=== PATIENT | female | born 1950 | race Caucasian/White ===

== ENCOUNTER 2016-08-07 09:21 | Inpatient (IN) | payer OTHER ==
[2016-08-07] MEDS ORDERED: NARCAN IV ONE (10:06)
[2016-08-07] MEDS ORDERED: NS 1,000 ML IV ONE (10:06)
--- NOTE | 2016-08-07 10:14 | PROVIDER DOCUMENTATION ---
[id number] Abuse/Overdose - General Chief Complaint: Overdose Stated Complaint: brain attack Time Seen by Provider: 08/07/16 09:26 Source: patient, family (pt ), EMS Allergies/Adverse Reactions: Allergies Allergy/AdvReac Type Severity Reaction Status Date / Time No Known Allergies Allergy Verified 08/07/16 10:14 Home Medications: Home Medication List Medication Instructions Recorded Confirmed Last Taken Type Amlodipine Besylate 10 mg PO HS 06/24/16 08/07/16 Unknown History Clonazepam 1 mg PO BID PRN 06/24/16 08/07/16 Unknown History Clonidine [Catapres] 0.1 mg PO BID 06/24/16 08/07/16 Unknown History Folic Acid 400 mg PO DAILY 06/24/16 08/07/16 Unknown History Melatonin 10 mg PO ORDERED 06/24/16 08/07/16 Unknown History Metoprolol Succinate E.r. [Toprol 50 mg PO DAILY 06/24/16 08/07/16 Unknown History Xl] Mirtazapine 30 mg PO HS 06/24/16 08/07/16 Unknown History Primidone 150 mg PO HS 06/24/16 08/07/16 Unknown History Primidone 150 mg PO QAM 06/24/16 08/07/16 Unknown History Quetiapine Fumarate 150 mg PO HS 06/24/16 08/07/16 Unknown History Zinc Gluconate [Zinc] 50 mg PO DIRECTED 06/24/16 08/07/16 Unknown History Levofloxacin [Levaquin] 750 mg PO DAILY #7 tablet 07/03/16 08/07/16 Unknown Rx Levothyroxine [Synthroid] 62.5 microgm IV DAILY@0700 #30 vial 07/03/16 08/07/16 Unknown Rx - History of Present Illness-Drug/Alcohol Nature of Presenting Problem: Pt is brought is by EMS with with cc of overdose. at bedside reports he thought pt was just sleeping last night and noticed this morning that she was lethargic and partially unresponsive. Pt reports that pt had 90 (.5mg) Kolonopine filled on the reports suppose to take 2 tablets a day and 65 pills are missing if she took them as she suppose to have been. Upon arrival pt is responsive to verbal and painful stimuli. Pt isn't oriented and answering questions. This episode of drinking or use began:: last night Severity: reports: moderate Any injuries associated with this episode of intoxication?: No Similar Symptoms Previously?: Yes Recently seen or treated by another doctor?: No Review of Systems - Adult - REVIEW OF SYSTEMS - ADULT Constitutional: denies: chills, fever, fatique Eyes: reports: no symptoms reported Ears, Nose, Mouth & Throat: reports: no symptoms reported Cardiovascular: denies: chest pain, orthopnea, poor circulation, syncope Respiratory: reports: no symptoms reported Gastrointestinal: reports: no symptoms reported Genitourinary: reports: no symptoms reported Musculoskeletal: reports: no symptoms reported Integumentary: reports: no symptoms reported Neurological: reports: no symptoms reported Psychiatric: reports: see HPI, other (overdose). denies: insomnia, panic attacks, suicidal thoughts Endocrine: reports: no symptoms reported Hematologic/Lymphatic: reports: no symptoms reported Allergic/Immunologic: reports: no symptoms reported All Other Systems: Reviewed and Negative Past History - Adult - PAST MEDICAL HISTORY-ADULT Review of Records: reports: Nursing Assessment Review, Medications Reviewed Major Childhood Illnesses: reports: denies history Cardiovascular: reports: HTN Neurological: reports: Seizures/Epilepsy Psychiatric: reports: anxiety, depression, other (nightmares) Endocrine/Immune: reports: hypoglycemia, thyroid disorder - PRIOR SURGERIES/PROCEDURES Surgical/Procedure History: reports: reviewed, not pertinent, , other ( breast implants) - PRIOR HOSPITALIZATIONS Prior Hospitalizations: reports: none - IMMUNIZATION STATUS Childhood Immunizations: See Nurse Assessment Flu Vaccine: See Nurse Assessment - FAMILY HISTORY Family History: reviewed, not pertinent - SOCIAL HISTORY Smoking: cigarettes, greater than 1 pack/day Provider spent 3-5 mins advising pt. on dangers of tobacco.: Discussed manners to quit use, and f/u contacts for add'l counseling. Substance Use: alcohol Physical Exam-General - PHYSICAL EXAM-ADULT Initial Vital Signs Reviewed: Yes - CONSTITUTIONAL General Appearance: no apparent distress, other (drowsy) - EYES Eyes: PERRL/EOMI - HEAD, EARS, NOSE, MOUTH & THROAT HENMT: pharynx normal. negative: moist mucous membranes (dry) - NECK Neck: non-tender, full range of motion, supple, normal inspection - RESPIRATORY Respiratory: chest non-tender, lungs clear, normal breath sounds, no pleuratic chest pain, no respiratory distress, no accessory muscle use - CARDIOVASCULAR Cardiovascular: regular rate, rhythm, no edema, no gallop, no JVD, no murmur - GASTROINTESTINAL (ABDOMEN) Abdominal Exam: soft, no organomegaly, no pulsatile mass, tenderness (ttp epigastric) - MUSCULOSKELETAL Extremity: normal range of motion, non-tender - SKIN Integumentary: normal turgor, warm/dry, pallor - PSYCHIATRIC Psych/Mental Status: oriented x 3. negative: normal mood/affect Progress - PLAN OF CARE/RESULTS Progress/Plan/Lab Results: Orders Category Date Time Status Cardiac Monitoring DIRECTED Care 08/07/16 10:04 Active Finger Stick Blood Sugar (ED) DIRECTED Care 08/07/16 10:04 Active Saline Loc NOW Care 08/07/16 10:04 Active CHEST-PORTABLE [RAD] Stat Exams 08/07/16 10:05 Ordered HEAD W/O CONTRAST [CT] Stat Exams 08/07/16 10:06 Ordered ABG [RESP] Routine Lab 08/07/16 10:04 Ordered ALCOHOL BLOOD Stat Lab 08/07/16 10:04 Uncollected CBC WITH ELECTRONIC DIFF [HEME] Stat Lab 08/07/16 10:04 Uncollected CK PROFILE [SP CHEM] Stat Lab 08/07/16 10:04 Uncollected COMPREHENSIVE METABOLIC PANEL [CHEM] Stat Lab 08/07/16 10:04 Uncollected LACTATE, PLASMA [CHEM] Stat Lab 08/07/16 10:04 Uncollected PROTIME WITH INR [COAG] Stat Lab 08/07/16 10:04 Uncollected PTT [COAG] Stat Lab 08/07/16 10:04 Uncollected TROPONIN T Stat Lab 08/07/16 10:04 Uncollected URINALYSIS W/POSS RFLX CULT [URINALYSIS] Stat Lab 08/07/16 10:15 Ordered URINE DRUG SCREEN Stat Lab 08/07/16 10:15 Ordered 0.9% Sodium Chloride Inj [Ns] 1,000 ml Med 08/07/16 10:06 Active IV 999 mls/hr Naloxone [Narcan] Med 08/07/16 10:06 Discontinued 2 mg IV NOW ONE Pulse Oximetry Stat Oth 08/07/16 10:04 Active EKG [EKG] Stat Ther 08/07/16 10:04 Ordered Vital Signs - 24 hr 08/07/16 09:21 Temperature 97.8 F Pulse Rate 82 Respiratory 14 Rate Blood Pressure 142/89 O2 Sat by Pulse 96 Oximetry - EKG 1 Time of EKG reading by physician:: 10:29 EKG Read and Signed by:: Florian Armando EKG Interpretation (*Must complete 3 of following elements*): Normal Rate: 81 Rhythm: nsr [place]: normal QRS: normal - CONSULTS/PCP/HOSPITALIST Notification #1 *Consult/PCP/Hospitalist*: Time Discussed: 12:32 Consult Disposition: Admit Departure - Departure Time of Disposition Order: 12:35 DIAGNOSIS: Suicidal ideation Overdose Qualifiers: Encounter type: initial encounter Injury intent: undetermined intent Qualified Code(s): T50.904A - Poisoning by unspecified drugs, medicaments and biological substances, undetermined, initial encounter Disposition: ADMITTED INPATIENT 09 Certified Medical Emergency: Emergent Condition: Stable Attestation - Scribe Verification/Attestation Scribe:: Grisel Ferguson Acting as Scribe for:: Florian Armando Scribe documention review:: This chart was documented by a scribe and accurately reflects the service the provider performed and the decisions made by the provider.
[2016-08-07 10:29] LABS: ALLEN TEST NO; BE -0.8 mmoll (-3.0-3.0); BLOOD TYPE ARTERIAL; DRAW SITE R BRACHIAL; METHB 1.7 % (0.0-1.5); MODALITY ROOM AIR; O2(CT) 15.5 mL/dL (15.0-23.0); PCO2(98.6) 36 mmHg (35-45); PO2(98.6) 76 mmHg (60-100); SAMPLE BLOOD; SAO2 98.2 % (95.0-100.0); THB 11.8 g/dL (11.5-17.4); pH(98.6) 7.42 (7.35-7.45)
[2016-08-07 10:53] LABS: URINE CULTURE NEEDED? NO; URINE MICRO REVIEW NEEDED? NO; URINE SOURCE CLEAN CATCH
[2016-08-07 10:53] LABS: MANUAL DIFF NEEDED? NO
--- NOTE | 2016-08-07 11:11 | EKG Report ---
Test Performed on : 08/07/2016 10:29:55 AM Test Reason : OD Blood Pressure : / mmHG Vent. Rate : 081 BPM Atrial Rate : 081 BPM P-R Int : 144 ms QRS Dur : 084 ms QT Int : 360 ms P-R-T Axes : 076 053 065 degrees QTc Int : 418 ms Normal sinus rhythm. Normal ECG When compared with ECG of 20-JUL-2016 16:07, No significant change was found Unconfirmed Result
[2016-08-07 11:20] LABS: BASO% 0.6 % (0.0-0.8); EOS# 0.42 X1000 (0.0-0.7); EOS% 6.5 % (0.0-10.0); HEMATOCRIT 37.9 % (37.0-47.0); LYMPH# 1.74 X1000 (1.2-3.4); LYMPH% 26.9 % (20.5-51.1); MCH 33.5 PG (27-31); MCHC 34.3 g/dL (33-37); MCV 97.7 FL (81-99); MONO# 0.53 X1000 (0.11-0.59); MONO% 8.2 % (1.7-9.3); MPV 11.4 FL (7.4-10.4); NEUT% 57.8 % (42.2-75.2); PLT 193 X1000 (130-400); RBC 3.88 XMIL (4.2-5.4)
[2016-08-07 11:21] LABS: BILIRUBIN URINE NEGATIVE (NEGATIVE); BLOOD URINE NEGATIVE (NEGATIVE); COLOR YELLOW; GLUCOSE URINE NEGATIVE (NEGATIVE); LEUKOCYTES URINE NEGATIVE (NEGATIVE); NITRITE URINE NEGATIVE (NEGATIVE); PROTEIN URINE NEGATIVE (NEGATIVE); SP GRAVITY URINE 1.009; TURBIDITY URINE CLEAR (CLEAR); UROBILINOGEN URINE NORMAL (NORMAL)
[2016-08-07 11:23] LABS: UR EPITHELIAL CELLS <10 /HPF (<10); URINE BACTERIA NEGATIVE /HPF; URINE RBC <10 /HPF (<10); URINE WBC <10 /HPF (<10)
[2016-08-07 11:32] LABS: INR 0.99; PROTIME 10.5 Seconds (9.2-11.7); PTT 26.8 Seconds (22.0-36.0)
[2016-08-07 11:46] LABS: CALCIUM 9.6 mg/dL (8.8-10.2); TOTAL BILIRUBIN 0.3 mg/dL (0.20-1.00); TOTAL PROTEIN 6.6 g/dL (6.3-8.3)
[2016-08-07 12:05] LABS: UR AMPHETAMINES QUAL NONE DETECTED (NONE DETECT); UR BARBITUATES QUAL PRESUMPTIVE POSITIVE (NONE DETECT); UR BENZODIAZEPIN QUAL PRESUMPTIVE POSITIVE (NONE DETECT); UR CANNABINOIDS QUAL NONE DETECTED (NONE DETECT); UR COCAINE QUAL NONE DETECTED (NONE DETECT); UR METHADONE QUAL NONE DETECTED (NONE DETECT); UR OPIATES QUAL NONE DETECTED (NONE DETECT); UR OXYCODONE QUAL NONE DETECTED (NONE DETECT); UR PCP QUAL NONE DETECTED (NONE DETECT)
--- NOTE | 2016-08-07 12:55 | Diag Imaging Result Document ---
PROCEDURE NAME: HEAD W/O CONTRAST - 08/07/2016 CT OF THE HEAD WITHOUT CONTRAST: FINDINGS: There is generalized cerebral atrophy. Some subcortical white matter lucency is present particularly in the parietal convexity on the left. There is no evidence of bleed, mass effect, or abnormal extraaxial fluid collection. No significant change has occurred since 06/24/2016. There is mucosal thickening throughout the ethmoid and maxillary sinuses. The calvarium appears to be intact. IMPRESSION: 1. Atrophy. No definite evidence of acute intracerebral disease. 2. Mild chronic microvascular white matter changes.
--- NOTE | 2016-08-07 13:11 | Diag Imaging Result Document ---
PROCEDURE NAME: CHEST-PORTABLE - 08/07/2016 SINGLE FRONTAL RADIOGRAPH OF THE CHEST: COMPARISON: 07/20/2016. FINDINGS: The lungs are grossly clear. There is no discrete pleural fluid collection or pneumothorax. The cardiomediastinal silhouette and upper airway are grossly unremarkable. IMPRESSION: No evidence of acute chest pathology.
--- NOTE | 2016-08-07 13:31 | HISTORY AND PHYSICAL ---
CHIEF COMPLAINT: Unresponsiveness. HISTORY OF PRESENT ILLNESS: Ms. Miguel is an unfortunate 66-year-old female, who is known to our service. She was recently discharged last month after an apparent unintentional overdose, which resulted in acute respiratory failure requiring intubation and acute renal failure. She was discharged on 07/03/2016. The patient is minimally responsive at this time. History is obtained per her , who we just spoke with on the phone. Last night the patient's was speaking with her on the phone, as he is a experienced truck driver and he was on his way home. This was at about 5:30 p.m., and she was in her normal state of health. When he got home around 10, she was sleeping and minimally responsive. He checked her blood pressure. He said it was around 109 systolic and she was minimally responsive. He continued to check on her throughout the night. This morning she remained somnolent, and he brought her to the ER for evaluation. The patient is able to tell us that she took multiple melatonins and Remeron pills; the exact amount is unknown. We do know that she has a bottle of Remeron that is essentially gone and was filled not too long ago. When she got to the ER, she had a head CT done, and it did not show anything acute. Official over- read of chest x-ray is still pending. Laboratory data is unremarkable, and her vital signs are stable. It is unclear if this was intentional, if any intent of suicide, but the states that she has been speaking of suicide in the past few days. As such, she is going to need to go to the ICU for close observation, and she will need a psychiatric evaluation. PAST MEDICAL HISTORY: 1. Depression. 2. Hypertension. 3. Nicotine dependence. 4. History of chronic pain. 5. Suicide attempts in the past. 6. Substance dependence. PAST SURGICAL HISTORY: Unknown. SOCIAL HISTORY: She lives with her . Apparently, she has a history of polysubstance dependence and nicotine dependence. She has had a suicide attempt in the past. REVIEW OF SYSTEMS: Unable to obtain. ALLERGIES: No known drug allergies. HOME MEDICATIONS: Norvasc 10 mg at night, Klonopin 1 mg b.i.d., Catapres 0.1 mg b.i.d., folic acid 400 mg p.o. daily, melatonin 10 mg as directed, Toprol-XL 50 mg daily, mirtazapine 30 mg at bedtime, primidone 150 mg at bedtime, primidone 150 mg p.o. in the a.m., quetiapine 150 mg p.o. at bedtime, zinc 50 mg as directed, Synthroid unclear at to the dose. PHYSICAL EXAMINATION: VITAL SIGNS: Blood pressure is 142/89, heart rate 82, respiratory rate 14, and O2 saturation 96% on 2 liters nasal cannula. Temperature is 97.8 degrees. GENERAL: This is a disheveled and chronically ill-appearing 66-year-old female, lying in the hospital bed, somnolent, minimally responsive. NEUROLOGIC: The patient is somnolent. She opens her eyes to tactile stimulus, but mumbles at times incoherently. She does follow commands, albeit it weakly, but no gross focal deficit. HEENT: Head, atraumatic and normocephalic. Her pupils are equal, round, and reactive to light. Oral mucosa is moist. Trachea is midline. CHEST: Clear to auscultation bilaterally. CARDIOVASCULAR: Regular rate and rhythm. S1 and S2 are noted. No murmurs, gallops, clicks, or rubs. GASTROINTESTINAL: Soft, nondistended, nontender. Bowel sounds are positive. EXTREMITIES: Without edema, clubbing or cyanosis. Pulses are palpable bilaterally. DIAGNOSTIC DATA: Head CT shows chronic changes, nothing acute. EKG shows normal sinus rhythm without acute ST or T abnormalities. Chest x-ray, unable to be viewed on the computer at this time. The over-read is pending. WBC 6.46, hemoglobin 13, hematocrit 37.9, platelet count 193,000. INR 0.99. ABG on room air, pH 7.42, CO2 of 36, O2 of 76, bicarbonate 24.2, lactate 0.4. Sodium 143, potassium 4, chloride 105, CO2 of 23, anion gap 15, BUN 17, creatinine 1. LFTs within normal limits. Albumin 4. Troponin and CKs are negative. UA is negative. Toxicology positive for barbiturates and benzodiazepines. Alcohol level was 0. ASSESSMENT AND PLAN: 1. Intentional overdose: Unclear if this is for attempted suicide; however, given her recent mention of suicidality, we have to assume that this was an intent for suicide. We will admit the patient to the intensive care unit for close observation and monitor her respiratory status closely. We will also monitor her vital signs on the hour. Once the patient is more stable, we will consult with Bethany Canales. We will also check salicylate and acetaminophen levels, ammonia level, and we are currently awaiting a chest x-ray. 2. Hypertension: Chronic and stable. We will add p.r.n. medications for now. 3. Nicotine and polysubstance dependence: The patient obviously has issues with substance dependence and will need penitentiary help. We will defer this to Bethany Canales once the patient is more stable. We will also write a nicotine patch for the patient on a daily basis. 4. Further recommendations to follow. TIME SPENT: Critical care time with the patient is 35 minutes. Dictated by PEÑA Dial for Alejandra Peralta MD
[2016-08-07 13:52] LABS: CK PROFILE 96 U/L (24-173)
[2016-08-07 14:08] LABS: ACETAMINOPHEN < 1.2 ug/mL (10-30)
[2016-08-07] MEDS ORDERED: SODIUM CHLORIDE 0.9% INJ SCH (14:24)
[2016-08-07] MEDS ORDERED: PROTONIX IV SCH (14:24)
[2016-08-07] MEDS ORDERED: NS 1,000 ML IV SCH (14:24)
[2016-08-07] MEDS ORDERED: SODIUM CHLORIDE 0.9% INJ PRN (16:09)
[2016-08-07 16:12] LABS: FREE T4 1.05 ng/dL (0.93-1.70)
[2016-08-07] MEDS: DUONEB (A & A) INH SCH ×3 (16:15→23:11)
[2016-08-07] MEDS: NICODERM PATCH TD SCH (16:19)
[2016-08-07] MEDS: NS 1,000 ML IV SCH ×2 (16:19→23:42)
[2016-08-07] MEDS: HALDOL IM PRN (16:19)
[2016-08-08] MEDS: HALDOL IM PRN (02:05)
[2016-08-08] MEDS: DUONEB (A & A) INH SCH ×2 (03:16→07:22)
[2016-08-08 05:29] LABS: HEMATOCRIT 34.3 % (37.0-47.0); HEMOGLOBIN 11.3 g/dL (12.0-16.0); MCH 32.4 PG (27-31); MCHC 32.9 g/dL (33-37); MCV 98.3 FL (81-99); MPV 11.2 FL (7.4-10.4); RBC 3.49 XMIL (4.2-5.4)
[2016-08-08 05:42] LABS: AGAP 12; BUN 11 mg/dL (8-22); CALCIUM 8.6 mg/dL (8.8-10.2); CHLORIDE 110 mmol/L (98-107); COSMO 285; POTASSIUM 3.4 mmol/L (3.5-5.1); SODIUM 144 mmol/L (136-145); TCO2 22 mmol/L (25-35)
[2016-08-08] MEDS ORDERED: SYNTHROID IV SCH (07:00)
[2016-08-08 07:59] VITALS: BP 163/94
[2016-08-08] MEDS: NICODERM PATCH TD SCH (08:32)
[2016-08-08] MEDS: NS 1,000 ML IV SCH (08:44)
[2016-08-08] MEDS ORDERED: KLOR-CON PO ONE (09:00)
[2016-08-08] MEDS ORDERED: LOVENOX SUBQ SCH (09:00)
== END 2016-08-08 12:18 | disposition left against medical advice (07) | DRG 918 ==
LOC: EDBD → ED 09:21 → ICU 13:53
PROVIDERS: ATTEND Internal Medicine
DX: T43.022A Poisoning by tetracyclic antidepressants, intentional self-harm, initial encounter (principal); I10 Essential (primary) hypertension; F19.20 Other psychoactive substance dependence, uncomplicated; T45.0X2A Poisoning by antiallergic and antiemetic drugs, intentional self-harm, initial encounter; E07.9 Disorder of thyroid, unspecified; F32.9 Major depressive disorder, single episode, unspecified; F17.210 Nicotine dependence, cigarettes, uncomplicated; Z79.899 Other long term (current) drug therapy; Z91.5 Personal history of self-harm
CPT/HCPCS: 70450; 71010; 80048; 80053; 81001; 82140; 82550; 82607; 82805; 82948; 84439; 84443; 84484; 85025; 85027; 85610; 85730; 93005; 94640; C9113; G0480; J1630; J1650; J2310; J7030; 80320; 80324; 80329; 80345; 80346; 80349; 80353; 80358; 80361; 80365; 83992; S0164